=== PATIENT | male | born 1975 | race Caucasian/White ===

== ENCOUNTER 2020-12-31 01:52 | Inpatient (IN) | payer BC, SELFPAY ==
[~2020-12-31] VITALS: Ht 177.8 cm; Wt 101.6 kg
[2020-12-31 02:00] VITALS: BP_SYST 150
--- NOTE | 2020-12-31 02:00 | NUR ---
PATIENT AAOX4 AND AMBULATORY C/O ALLERGIC REACTION TO NEW MEDICATION JARDIANCE THAT WAS STARTED 4 DAYS AGO. PATIENT STATED HE HAS BEEN HAVING SHORTNESS OF BREATH X 2 DAYS. N/V +TODAY. HISTORY OF DM,HTN,ASHTMA. CURRENTLY STATING HAVING 3/10 ON THE PAIN SCALE. VSS.
--- NOTE | 2020-12-31 02:00 | NUR ---
Patient to ER bed 7 to gown for evaluation. Side rails up.
[2020-12-31] MEDS ORDERED: ONDANSETRON HCL 4 MG/2 ML VIAL ONE (02:46)
--- NOTE | 2020-12-31 02:49 | NUR ---
ELLEN Edwards at bedside examining patient.
[2020-12-31] MEDS ORDERED: MAG HYDROX/AL HYDROX/SIMETH 30 ML, DICYCLOMINE HCL 20 MG, LIDOCAINE VISCOUS 2% 15ML (PO... PO ONE ×3 (03:00)
[2020-12-31] MEDS ORDERED: NACL 0.9% 1,000 ML IV ONE ×3 (03:00→06:30)
--- NOTE | 2020-12-31 03:20 | NUR ---
PORTABLE XRAY DONE AT BEDSIDE.
[2020-12-31 03:28] LABS: BASOPHILS # (AUTO) 0.1 K/uL (0.0-0.2); BASOPHILS % (AUTO) 0.6 % (0.0-2.0); HEMATOCRIT 49.1 % (36-54); HEMOGLOBIN 16.6 g/dL (14.0-18.0); LYMPHOCYTES # (AUTO) 0.8 K/uL (1.0-5.5); LYMPHOCYTES % (AUTO) 8.9 % (20.5-51.5); MEAN CORPUSCULAR HEMOGLOBIN 32 pg (27-31); MEAN CORPUSCULAR HGB CONC 34 % (32-36); MEAN CORPUSCULAR VOLUME 96 fL (79.0-98.0); MONOCYTES # (AUTO) 0.3 K/uL (0.0-1.0); MONOCYTES % (AUTO) 3.7 % (1.7-9.3); NEUTROPHILS # (AUTO) 8.2 K/uL (1.8-7.7); NEUTROPHILS % (AUTO) 86.8 % (40.0-70.0); PLATELET COUNT (AUTO) 292 K/uL (130-430); RED BLOOD CELL COUNT(AUTO) 5.12 MIL/uL (4.2-6.2); RED CELL DISTRIBUTION WIDTH 15.1 % (9.0-15.0); WHITE BLOOD COUNT (AUTO) 9.4 K/uL (4.8-10.8)
[2020-12-31] MEDS ORDERED: METOCLOPRAMIDE HCL 10 MG/2 ML VIAL IVP ONE (03:30)
[2020-12-31] MEDS ORDERED: MAG-AL HYDROX/SIMETH 30 ML UDC ONE (03:36)
[2020-12-31] MEDS ORDERED: LIDOCAINE VISCOUS 2%, 15 ML UDC ONE (03:36)
[2020-12-31 03:40] LABS: CALCIUM 8.8 mg/dL (8.4-11.0); CREATININE 0.87 mg/dL (0.55-1.30); POTASSIUM 3.8 mmol/L (3.5-5.1); TOTAL BILIRUBIN 0.6 mg/dL (0.0-1.0)
[2020-12-31] MEDS ORDERED: ONDANSETRON HCL 4 MG/2 ML VIAL IVP ONE (03:45)
[2020-12-31 03:53] LABS: BILIRUBIN,URINE NEGATIVE (NEGATIVE); BLOOD, URINE 1+ (NEGATIVE); CLARITY/URINE CLEAR (CLEAR); COLOR,URINE YELLOW (YELLOW); GLUCOSE,URINE 2+ (NEGATIVE); KETONES,URINE 3+ (NEGATIVE); LEUKOCYTE ESTERASE ,URINE NEGATIVE (NEGATIVE); NITRITE, URINE NEGATIVE (NEGATIVE); PH,URINE 5.5 (5.0-8.0); PROTEIN URINE 1+ (NEGATIVE); UROBILINOGEN,URINE 0.2 (0.2-1.0)
[2020-12-31 04:12] LABS: BACTERIA,URINE FEW /HPF (None Seen); HYALINE CASTS, URINE 0-10 /LPF (None Seen); WBC,URINE 0-3 /HPF (0-3)
--- NOTE | 2020-12-31 04:23 | NUR ---
Patient resting quietly. No acute distress noted. Vital signs within normal range.
[2020-12-31] MEDS ORDERED: KCL 20 mEq in D5/0.45NS 1000mL 1,000 ML IV ONE (06:30)
--- NOTE | 2020-12-31 06:30 | NUR ---
Patient will be admitted to [facility]. Admitted to TELE unit. Will go to room PENDING ASSIGNMENT. Belongings list completed.
[2020-12-31] MEDS: LEVOTHYROXINE SODIUM 0.025 MG TABLET PO SCH (07:00)
[2020-12-31] MEDS ORDERED: LEVO25TA7 PO (07:03)
[2020-12-31] MEDS ORDERED: EMPA25TA PO (07:03)
[2020-12-31] MEDS ORDERED: GLUXR500 PO (07:03)
[2020-12-31] MEDS ORDERED: BENA20TA9 PO (07:03)
[2020-12-31] MEDS ORDERED: METO50TA7 PO (07:03)
--- NOTE | 2020-12-31 07:03 | NUR ---
Medication reconciliation completed with information provided by PATIENT. Any prior medication reconciliation on file was reviewed and corrected.
[2020-12-31 07:07] LABS: CREATININE 0.91 mg/dL (0.55-1.30); POTASSIUM 3.9 mmol/L (3.5-5.1)
[2020-12-31] MEDS ORDERED: INSULIN ASPART 100 UNITS/ML, 10 ML VIAL (NovoLOG) SUBCUT PRN (07:15)
--- NOTE | 2020-12-31 07:17 | NUR ---
REPORT GIVEN TO MARY AWAD.
--- NOTE | 2020-12-31 07:20 | NUR ---
Assumed care of patient, report received from MARY Yu. Pt currently resting in bed, no acute distress noted.
--- NOTE | 2020-12-31 07:40 | NUR ---
# 20 gauge angiocath placed to RFA. Use of asceptic technique. Opsite placed over site. Blood return noted. Flushed with 10 cc of normal saline. No evidence of infiltration noted. Patient tolerated well.
[2020-12-31] MEDS ORDERED: DEXTROSE 50%-WATER 50 ML DISP.SYRIN IVP PRN (08:00)
[2020-12-31] MEDS ORDERED: GLUCOSE (DEXTROSE) ORAL GEL -Adults PO PRN (08:00)
[2020-12-31] MEDS ORDERED: D5W 1,000 ML IV PRN (08:00)
--- NOTE | 2020-12-31 08:00 | NUR ---
Patient will be admitted to care of Dr. Camargo. Admitted to Tele unit. Will go to room 100A. Belongings list completed. Complete and up to date summary report printed. SBAR report to be given at bedside with opportunity for questions.
[2020-12-31 08:33] VITALS: BP_SYST 120
--- NOTE | 2020-12-31 08:33 | NUR ---
admission notes rec patient awake alert admitted from er with c/o nausea and vomiting since last night. ivf infusing well on the r forearm. no infiltration noted. resp easy and unlabored. no sob noted. bed to the lowest position and side rails up and locked. oriented to surroundings. call light within reached and knows when to call for for assistance. mom at bedside.
[2020-12-31] MEDS: METOPROLOL SUCCINATE 50 MG TAB.SR.24H (TOPROL XL) PO SCH (09:00)
[2020-12-31] MEDS: PANTOPRAZOLE SODIUM 40 MG TAB PO SCH ×2 (09:00→21:05)
[2020-12-31] MEDS ORDERED: ACETAMINOPHEN 325 MG TABLET ONE (09:41)
[2020-12-31] MEDS ORDERED: ACETAMINOPHEN 325 MG TABLET PO PRN (09:45)
--- NOTE | 2020-12-31 11:24 | NUR ---
CONSULTATION PAGED REASON FOR CONSULTATION:NAUSEA AND VOMITING WAS CONSULT CALLED?Y PERSON WHO WAS NOTIFIED:CORA CONSULTING PHYSICIAN:DAI ADAM PEGGER SPECIALTY:GASTROENTEOLOGY PEGGER PHONE NUMBER:[phone] REQUESTING PHYSICIAN:AMEENA VARELA
[2020-12-31 12:35] VITALS: BP_SYST 134
[2020-12-31] MEDS: NACL 0.9% 1,000 ML IV SCH ×4 (13:10→23:17)
[2020-12-31] MEDS ORDERED: IBUPROFEN 400 MG TABLET PO PRN (14:00)
[2020-12-31] MEDS: MORPHINE 2 MG/ML INJ. SYRINGE IVP PRN ×3 (15:08→23:17)
[2020-12-31] MEDS ORDERED: MORPHINE 2 MG/ML INJ. SYRINGE ONE (15:08)
[2020-12-31] MEDS: ONDANSETRON HCL 4 MG/2 ML VIAL IVP PRN ×2 (15:42→23:16)
[2020-12-31 16:03] VITALS: BP_SYST 149
[2020-12-31] MEDS ORDERED: METOPROLOL TARTRATE 5 MG/5 ML VIAL IVP ONE (19:30)
--- NOTE | 2020-12-31 19:30 | NUR ---
OPENING NOTES RECEIVED CARE OF PT. PT IS AAOX4, RESTING IN BED, BREATHING IS EVEN AND UNLABORED TO ROOM AIR. PT REPORTING NAUSEA AT THIS TIME. PT'S MOTHER AT BEDSIDE. PLAN OF CARE DISCUSSED. SAFETY PRECAUTIONS ARE IN PLACE. WILL CONTINUE TO MONITOR.
[2020-12-31 20:00] VITALS: BP_SYST 144
[2020-12-31] MEDS: lisinopriL 5 MG TABLET PO SCH (20:21)
[2020-12-31] MEDS: INSULIN LISPRO SLIDING SCALE 100 UNITS/ML VIAL (humaLOG) SUBCUT PRN (20:24)
[2020-12-31] MEDS ORDERED: BENAZEPRIL HCL 20 MG TABLET (LOTENSIN) PO SCH (21:00)
[2021-01-01 00:10] VITALS: BP_SYST 121
[2021-01-01] MEDS: LEVOTHYROXINE SODIUM 0.025 MG TABLET PO SCH (05:44)
[2021-01-01] MEDS: NACL 0.9% 1,000 ML IV SCH (05:58)
[2021-01-01] MEDS: ONDANSETRON HCL 4 MG/2 ML VIAL IVP PRN ×2 (06:04→20:37)
[2021-01-01] MEDS: MORPHINE 2 MG/ML INJ. SYRINGE IVP PRN ×4 (06:07→20:39)
[2021-01-01 06:41] LABS: PROTHROMBIN TIME 10.3 SECS (9.5-12.5)
--- NOTE | 2021-01-01 06:44 | NUR ---
CLOSING NOTE PT IS AAOX4, RESTING IN BED, BREATHING IS EVEN AND UNLABORED TO ROOM AIR. PT NPO FOR EGD TODAY. IVF INFUSING AT ORDERED RATE. PT MEDICATED FOR PAIN AND NAUSEA THROUGHOUT SHIFT. SAFETY PRECAUTIONS ARE IN PLACE. WILL ENDORSE TO DAY SHIFT RN.
[2021-01-01 06:57] LABS: ALBUMIN 3.6 g/dL (3.4-4.8); CALCIUM 8.2 mg/dL (8.4-11.0); CREATININE 0.9 mg/dL (0.55-1.30); TOTAL BILIRUBIN 0.4 mg/dL (0.0-1.0)
--- NOTE | 2021-01-01 07:10 | NUR ---
OPENING NOTE RECEIVED SBAR FROM NIGHT RN, PATIENT IN BED, RESPIRATIONS EVEN NON LABORED, BED IN LOW AND LOCKED POSITION CALL LIGHT WITHIN REACH,
[2021-01-01] MEDS ORDERED: MEPERIDINE 100 MG INJ. 100 MG/ML VIAL ONE (07:35)
[2021-01-01] MEDS ORDERED: MIDAZOLAM HCL 5 MG/5 ML VIAL ONE (07:35)
[2021-01-01] MEDS ORDERED: SIMETHICONE 40 MG/0.6 ML ML ONE (07:35)
--- NOTE | 2021-01-01 07:39 | NUR ---
CRITICAL LAB RECEIVED CARBON DIOXIDE [address] CHRISTENSEN
[2021-01-01 07:49] LABS: BASOPHILS % (AUTO) 0.2 % (0.0-2.0); HEMATOCRIT 49.1 % (36-54); HEMOGLOBIN 16.4 g/dL (14.0-18.0); LYMPHOCYTES # (AUTO) 1.6 K/uL (1.0-5.5); LYMPHOCYTES % (AUTO) 16.5 % (20.5-51.5); MEAN CORPUSCULAR HEMOGLOBIN 33 pg (27-31); MEAN CORPUSCULAR HGB CONC 33 % (32-36); MEAN CORPUSCULAR VOLUME 98 fL (79.0-98.0); MONOCYTES # (AUTO) 0.9 K/uL (0.0-1.0); MONOCYTES % (AUTO) 9.2 % (1.7-9.3); NEUTROPHILS # (AUTO) 7.4 K/uL (1.8-7.7); NEUTROPHILS % (AUTO) 74.1 % (40.0-70.0); PLATELET COUNT (AUTO) 267 K/uL (130-430); RED BLOOD CELL COUNT(AUTO) 5.02 MIL/uL (4.2-6.2); RED CELL DISTRIBUTION WIDTH 15.4 % (9.0-15.0)
--- NOTE | 2021-01-01 07:55 | NUR ---
INFORMED DR CHRISTENSEN OF CRITICAL CARBON DIOXIDE 9, BOLUS 250 ML/HR.
--- NOTE | 2021-01-01 10:15 | NUR ---
gi patient left for GI via wheel chair
[2021-01-01] MEDS ORDERED: FLUCONAZOLE 200 MG TABLET (DIFLUCAN) PO ONE ×2 (10:45→22:45)
--- NOTE | 2021-01-01 11:08 | NUR ---
GI returned from GI alert oriented, respirations even, non labored, bed in low and locked position call light within reach,
[2021-01-01] MEDS: SODIUM BICARBONATE 8.4% JECT 100 MEQ in 0.45% NACL 1,000 ML IVP SCH ×2 (11:15→22:43)
[2021-01-01 12:00] VITALS: BP_SYST 130
[2021-01-01] MEDS: INSULIN LISPRO SLIDING SCALE 100 UNITS/ML VIAL (humaLOG) SUBCUT PRN ×3 (12:08→22:19)
[2021-01-01] MEDS: METOPROLOL SUCCINATE 50 MG TAB.SR.24H (TOPROL XL) PO SCH (13:41)
[2021-01-01 16:00] VITALS: BP_SYST 136
--- NOTE | 2021-01-01 17:17 | NUR ---
md rounds Dr Stewart bedside examining patient
--- NOTE | 2021-01-01 19:09 | NUR ---
closing note provided sbar to night rn, patient in bed respirations even, non labored, bed in low and locked position call light within reach endorsed care to night RN
[2021-01-01 20:20] VITALS: BP_SYST 139
--- NOTE | 2021-01-01 20:20 | NUR ---
OPENING NOTES: Received patient report earlier from MARY Burton. Patient resting in bed. AAOX4, breathing evenly and unlabored on room air. Vital signs stable. Patient has an IV on right forearm 20g, IVF running, patient tolerating it well. Patient complained of severe pain and mild nausea. Denies vomiting. Educated patient on due medications, prn medications, non pharmacological interventions. Patient stated understanding. BS checked. Patient refused insulin. Education given. Patient stated understanding. Administered due medications and prn medications. Patient tolerated it well. Educated patient on plan of care. Fall/safety precautions, call light system, patient stated understanding with return demonstration. No other needs at this time. Bed is locked and at lowest position, call light within reach. Will continue to monitor.
[2021-01-01] MEDS: lisinopriL 5 MG TABLET PO SCH (20:39)
[2021-01-02 00:30] VITALS: BP_SYST 119
[2021-01-02 03:45] VITALS: BP_SYST 114
[2021-01-02] MEDS: MORPHINE 2 MG/ML INJ. SYRINGE IVP PRN ×5 (03:49→22:09)
[2021-01-02] MEDS: SODIUM BICARBONATE 8.4% JECT 100 MEQ in 0.45% NACL 1,000 ML IVP SCH ×2 (05:22→21:30)
[2021-01-02] MEDS: LEVOTHYROXINE SODIUM 0.025 MG TABLET PO SCH (06:11)
[2021-01-02] MEDS: INSULIN LISPRO SLIDING SCALE 100 UNITS/ML VIAL (humaLOG) SUBCUT PRN ×4 (06:14→21:31)
--- NOTE | 2021-01-02 06:15 | NUR ---
CLOSING NOTES Patient resting in bed, awake, breathing evenly and nonlabored on room air. IVF running, patient tolerating it well. Due medications and PRN medications were given throughout the shift, patient tolerated them well. BS was checked as ordered, coverage was needed this morning. Patient denies any pain or SOB at this time. Needs met throughout the shift. Fall/safety precautions, will endorse care to morning shift RN.
[2021-01-02 06:29] LABS: BASOPHILS % (AUTO) 0.3 % (0.0-2.0); EOSINOPHILS % (AUTO) 0.2 % (0.0-4.0); HEMATOCRIT 42.9 % (36-54); HEMOGLOBIN 14.8 g/dL (14.0-18.0); LYMPHOCYTES # (AUTO) 1.2 K/uL (1.0-5.5); LYMPHOCYTES % (AUTO) 18.7 % (20.5-51.5); MEAN CORPUSCULAR HEMOGLOBIN 33 pg (27-31); MEAN CORPUSCULAR HGB CONC 35 % (32-36); MEAN CORPUSCULAR VOLUME 95 fL (79.0-98.0); MONOCYTES # (AUTO) 0.9 K/uL (0.0-1.0); MONOCYTES % (AUTO) 13.3 % (1.7-9.3); NEUTROPHILS # (AUTO) 4.4 K/uL (1.8-7.7); NEUTROPHILS % (AUTO) 67.5 % (40.0-70.0); PLATELET COUNT (AUTO) 212 K/uL (130-430); RED BLOOD CELL COUNT(AUTO) 4.55 MIL/uL (4.2-6.2); RED CELL DISTRIBUTION WIDTH 15.2 % (9.0-15.0)
--- NOTE | 2021-01-02 06:46 | NUR ---
Nutrition Update Vignesh Scale 18 noted. Pt admitted for Uncontrolled Diabetes Diet: GI Soft BMI: 32.1 kg/m2 RD to follow per nutrition care standards.
[2021-01-02 07:00] LABS: ALBUMIN 3.1 g/dL (3.4-4.8); CALCIUM 7.9 mg/dL (8.4-11.0); CREATININE 0.9 mg/dL (0.55-1.30); TOTAL BILIRUBIN 0.7 mg/dL (0.0-1.0)
[2021-01-02 07:03] LABS: WHITE BLOOD COUNT (AUTO) 6.5 K/uL (4.8-10.8)
--- NOTE | 2021-01-02 07:43 | NUR ---
OPENING NOTE RECEIVED REPORT FROM NIGHT NURSE. PATIENT IS SITTING UP IN BED, ON ROOM AIR AND TOLERATING WELL WITH NO SIGNS OF SHORTNESS OF BREATH. IV IS PATENT, INFUSING FLUIDS ORDERED. COMPLAINING OF PAIN AND NAUSEA. BED LOCKED AND IN LOWEST POSITION. CALL LIGHT WITHIN REACH. WILL CONTINUE TO MONITOR.
[2021-01-02 08:00] VITALS: BP_SYST 120
[2021-01-02] MEDS: PANTOPRAZOLE SODIUM 40 MG TAB PO SCH (08:00)
[2021-01-02] MEDS: ONDANSETRON HCL 4 MG/2 ML VIAL IVP PRN ×3 (08:00→22:03)
[2021-01-02] MEDS: METOPROLOL SUCCINATE 50 MG TAB.SR.24H (TOPROL XL) PO SCH (08:00)
--- NOTE | 2021-01-02 08:10 | NUR ---
CRITICAL LAB: Laboratory called with critical lab value K 2.9. Medical record number and patient name verified. Read back of values done. DR. CHRISTENSEN notified of value BY SPEAKING WITH HIM ON THE FLOOR. TO PUT IN ORDERS.
[2021-01-02 08:19] LABS: POTASSIUM 2.9 mmol/L (3.5-5.1)
[2021-01-02] MEDS ORDERED: FLUCONAZOLE 100 MG TABLET (DIFLUCAN) PO SCH ×2 (09:00→21:00)
[2021-01-02] MEDS ORDERED: MAG-AL HYDROX/SIMETH 30 ML UDC PO ONE (09:15)
[2021-01-02] MEDS ORDERED: MAG-AL HYDROX/SIMETH 30 ML UDC ONE (09:44)
[2021-01-02] MEDS ORDERED: POTASSIUM CHLORIDE 20 MEQ TAB.PRT.SR PO ONE (09:45)
[2021-01-02] MEDS ORDERED: POLYETHYLENE GLYCOL 3350, 17 GM/ POWD.PACK PO ONE (10:45)
[2021-01-02] MEDS ORDERED: DOCUSATE SODIUM 100 MG CAPSULE PO ONE (10:45)
[2021-01-02] MEDS ORDERED: chlorproMAZINE HCL 50 MG/ 2 ML AMP IM PRN (10:45)
--- NOTE | 2021-01-02 11:35 | NUR ---
Dietitian Recommendations *Recommend: GI Soft CCHO Cardiac diet. Please see Nutritional Assessment for details. ELIAN HOLCOMB
--- NOTE | 2021-01-02 19:00 | NUR ---
CLOSING NOTE PATIENT IS SITTING UP IN BED, ON ROOM AIR AND TOLERATING WELL WITH NO SIGNS OF SHORTNESS OF BREATH. IV IS PATENT, INFUSING FLUIDS ORDERED. BED LOCKED AND IN LOWEST POSITION. CALL LIGHT WITHIN REACH. WILL ENDORSE TO NIGHT NURSE.
--- NOTE | 2021-01-02 19:15 | NUR ---
OPENING NOTES Patient resting in bed - no s/s pain or distress noted. Respirations even and unlabored - head of bed elevated. IV site patent - no s/s redness, infection, or infiltration. Skin warm and dry - no s/s hypoglycemia. Bed locked and in lowest position. Call light within reach.
[2021-01-02 20:00] VITALS: BP_SYST 107
[2021-01-02] MEDS: lisinopriL 5 MG TABLET PO SCH (21:00)
[2021-01-02] MEDS: POTASSIUM CHLORIDE 20 MEQ TAB.PRT.SR PO SCH (21:17)
[2021-01-02] MEDS: DOCUSATE SODIUM 100 MG CAPSULE PO SCH (21:18)
[2021-01-03] MEDS: SODIUM BICARBONATE 8.4% JECT 100 MEQ in 0.45% NACL 1,000 ML IVP SCH (02:00)
[2021-01-03] MEDS: MORPHINE 2 MG/ML INJ. SYRINGE IVP PRN ×2 (02:07→06:32)
[2021-01-03 03:16] VITALS: BP_SYST 114
[2021-01-03] MEDS: LEVOTHYROXINE SODIUM 0.025 MG TABLET PO SCH (06:16)
[2021-01-03] MEDS: INSULIN LISPRO SLIDING SCALE 100 UNITS/ML VIAL (humaLOG) SUBCUT PRN (06:22)
[2021-01-03] MEDS: ONDANSETRON HCL 4 MG/2 ML VIAL IVP PRN (06:25)
[2021-01-03 07:26] LABS: ALBUMIN 2.9 g/dL (3.4-4.8); CREATININE 0.62 mg/dL (0.55-1.30); TOTAL BILIRUBIN 0.6 mg/dL (0.0-1.0)
--- NOTE | 2021-01-03 07:40 | NUR ---
OPENING NOTES: RECEIVED REPORT FROM [employer] OPERATOR NURSE. PATIENT IS AWAKE, ALERT LAYING DOWN IN BED. TOLERATED OXYGEN ON ROOM AIR WITH NO DISTRESS NOTED. IV LINE PATENT AND INTACT WITH NO INFILTRATION NOTED. DENIES ANY PAIN AT THE MOMENT. SAFETY, FALL, AND ASPIRATION PRECAUTIONS ARE IN PLACE. BED LOCKED IN LOWEST POSITION AND CALL LIGHT IN REACH. WILL CONTINUE TO MONITOR PATIENT FOR ANY CHANGES.
[2021-01-03 08:00] VITALS: BP_SYST 111
[2021-01-03 08:05] LABS: POTASSIUM 2.8 mmol/L (3.5-5.1)
[2021-01-03] MEDS: POTASSIUM CHLORIDE 20 MEQ TAB.PRT.SR PO SCH (08:26)
[2021-01-03] MEDS: PANTOPRAZOLE SODIUM 40 MG TAB PO SCH (08:27)
[2021-01-03] MEDS: DOCUSATE SODIUM 100 MG CAPSULE PO SCH (08:27)
[2021-01-03] MEDS: METOPROLOL SUCCINATE 50 MG TAB.SR.24H (TOPROL XL) PO SCH (08:27)
[2021-01-03] MEDS ORDERED: GLIP10TA11 PO (08:32)
[2021-01-03] MEDS ORDERED: POLYETHYLENE GLYCOL 3350, 17 GM/ POWD.PACK PO SCH (09:00)
[2021-01-03] MEDS ORDERED: FLUCONAZOLE 100 MG TABLET (DIFLUCAN) PO SCH (09:00)
[2021-01-03 10:48] VITALS: BP_SYST 111
[2021-01-03 10:56] VITALS: BP_SYST 125
[2021-01-03] MEDS ORDERED: DIF100 PO ×2 (11:30→11:33)
--- NOTE | 2021-01-03 11:50 | NUR ---
D/C Patient Patient given medication reconciliation form and D/C instructions. Exit Care provided. Patient verbalized understanding. MD discussed with patient the results and treatment provided. Ambulatory with steady gait for discharge to home. Patient in stable condition, ID band removed. IV catheter removed, intact and dressing applied, no active bleeding. Rx of glipizide 10 mg, protonix of 40mg, and fluconazole 100mg given as oredered. Patient educated on pain management. All belongings sent with patient.
== END 2021-01-03 11:50 | disposition home or self-care (01) | DRG 74 ==
LOC: SED 01:52 → STU 06:28
PROVIDERS: ADMIT Internal Medicine Cardiovascular Disease; ATTEND Internal Medicine Cardiovascular Disease
PROC: 0DB78ZX Excision of Stomach, Pylorus, Via Natural or Artificial Opening Endoscopic, Diagnostic (ICD-10-PCS; 2021-01-01)
PROC: 0DB58ZX Excision of Esophagus, Via Natural or Artificial Opening Endoscopic, Diagnostic (ICD-10-PCS; principal; 2021-01-01 10:15)
DX: E11.43 Type 2 diabetes mellitus with diabetic autonomic (poly)neuropathy (principal); B37.81 Candidal esophagitis; E11.10 Type 2 diabetes mellitus with ketoacidosis without coma; E66.01 Morbid (severe) obesity due to excess calories; E86.0 Dehydration; A08.4 Viral intestinal infection, unspecified; E03.9 Hypothyroidism, unspecified; I10 Essential (primary) hypertension; J45.909 Unspecified asthma, uncomplicated; K29.70 Gastritis, unspecified, without bleeding; K21.9 Gastro-esophageal reflux disease without esophagitis; K31.84 Gastroparesis; K44.9 Diaphragmatic hernia without obstruction or gangrene; Z20.822 Contact with and (suspected) exposure to COVID-19; Z79.84 Long term (current) use of oral hypoglycemic drugs; Z79.890 Hormone replacement therapy; Z79.899 Other long term (current) drug therapy; Z80.3 Family history of malignant neoplasm of breast; Z83.3 Family history of diabetes mellitus; Z68.32 Body mass index [BMI] 32.0-32.9, adult
CPT/HCPCS: 36415; 43239; 71045; 80048; 80053; 80061; 81000; 82009; 82150; 82962; 83036; 83605; 83690; 85025; 85610-TC; 87081; 88305; 88312; 88313; 88341; 88342; 93005; 96361; 96374; 96375; 99291; G0378; J2001; J2175; J2250; J2270; J2405; J2765; J3230; J3490